=== PATIENT | male | born 1975 | race Caucasian/White ===

== ENCOUNTER 2022-03-12 09:26 | Emergency (ER) | payer SELFPAY ==
[~2022-03-12] VITALS: Ht 162 cm; Wt 77.0 kg
[2022-03-12] MEDS ORDERED: KETOROLAC 60 MG/2 ML VIAL IM ONE (10:30)
--- NOTE | 2022-03-12 11:40 | ED Lower Extremity ---
General Chief Complaint: Lower Extremity Stated Complaint: R ANKLE PAIN Nursing Triage Note: PT TO RM 8 WITH DAUGHTER WITH C/O R ANKLE AND FOOT PAIN SINCE FRIDAY MORNING. PT STATES HE PLAYED SOCCER ON FRIDAY AND THOUGHT HE POSSIBLY INJURED IT OR A GOUT FLARE. PT SEEN AT [facility] YESTERDAY Source: patient Exam Limitations: no limitations History of Present Illness Date Seen by Provider: Mar 12, 2022 Time Seen by Provider: 09:45 Initial Comments I attest that I saw this patient alongside the medical student and agree with his documented history, physical exam and review of systems except as otherwise noted.Patient to the ER by private conveyance chief complaint that over the weekend he playing football and he does not normally exercise or play football. He is having swelling and pain in his right ankle so he put some ice and compression and elevation on it and this caused a flare of gout in his right great toe. He went to [facility] yesterday and they did not give him any steroids just told him to take Tylenol. He took Tylenol and it did not help him. He did not receive any steroids or injections. He has no kidney history. He is not on allopurinol. Patient experiences about 1 flare every 3 months. He has made dietary changes. Allergies and Home Medications Allergies Coded Allergies: No Known Drug Allergies (Unverified , 03/12/22) Patient Home Medication List Home Medication List Reviewed: Yes Review of Systems Constitutional: No chills, No fever, No malaise EENTM: No hearing loss, No ear pain Respiratory: No cough, No short of breath Cardiovascular: No chest pain, No palpitations Gastrointestinal: No abdominal pain, No nausea, No vomiting All Other Systems Reviewed Negative Unless Noted: Yes Past Infdtml-Oizmeq-Aahdru Hx Patient Social History Tobacco Use?: No Use of E-Cig and/or Vaping dev: No Substance use?: No Alcohol Use?: No Pt feels they are or have been: No Immunizations Up To Date First/Initial COVID19 Vaccinat: UNKNOWN DATE Second COVID19 Vaccination Flo: MARCH 2022 Past Medical History Surgery/Hospitalization HX: GOUT, HTN HERNIA, LEODAN Physical Exam Vital Signs Vital Signs - First Documented 03/12/22 09:47 Temp 36.6 Pulse 89 Resp 16 B/P (MAP) 175/101 (125) Capillary Refill : Height, Weight, BMI Height: '" Weight: lbs. oz. kg; 29.00 BMI Method: General Appearance: WD/WN, mild distress HEENT: PERRL/EOMI, pharynx normal Neck: full range of motion, supple, normal inspection Cardiovascular: normal peripheral pulses, regular rate, rhythm Respiratory: no respiratory distress, no accessory muscle use Ankles: bilateral ankle other (Right ankle bilateral malleoli posteriorly are nontender to palpation. There is some edema and swelling around the ankle as well as the great toe that is warm red and very tender to palpation. Left ankle and foot are unremarkable.) Neurologic/Tendon: normal sensation, normal motor functions, normal tendon functions, responds to pain, no evidence tendon injury Neurologic/Psychiatric: no motor/sensory deficits, alert, normal mood/affect, oriented x 3 Progress/Results/Core Measures Results/Orders My Orders Orders - ROB ERIC Ketorolac Injection (Toradol Injection) (03/12/22 10:30) Medications Given in ED Current Medications Medications Dose Ordered Sig/Edward Route Start Time Stop Time Status Last Admin Dose Admin Ketorolac Tromethamine 60 mg ONCE ONCE IM 03/12/22 10:30 03/12/22 10:31 DC 03/12/22 10:25 60 MG Vital Signs/I&O 03/12/22 09:47 Temp 36.6 Pulse 89 Resp 16 B/P (MAP) 175/101 (125) Blood Pressure Mean: 125 Progress Progress Note : Time: 11:35 Progress Note Toradol. We did review the x-ray that was clouded and faxed over from [facility] that demonstrated no fracture detected. Lateral ankle soft tissue swelling. We will give him a prescription for allopurinol to start after this episode is over. We encouraged heat for the gout, wrapped his ankle with Sushil wrap and will put him on indomethacin for 5 days as well as continue Tylenol and put him on Medrol Dosepak. Patient is okay with this plan. Departure Impression Primary Impression: Gout flare Qualified Codes: M10.9 - Gout, unspecified Additional Impression: Right ankle sprain Qualified Codes: S93.401A - Sprain of unspecified ligament of right ankle, initial encounter Disposition: 01 HOME, SELF-CARE Condition: Stable Departure-Patient Inst. Decision time for Depature: 11:37 Referrals: NO,LOCAL PHYSICIAN (PCP/Family) Primary Care Physician Patient Instructions: Ankle Sprain ED, Low Purine Diet, Gout ED Add. Discharge Instructions: Keep the ankle loosely wrapped with elastic bandage such as an Sushil wrap until the swelling and pain goes away. You may use applications of heat judiciously for pain. Tylenol 1000 mg every 8 hours needed for pain. Do not use ibuprofen, naproxen or Aleve with indomethacin as they are the same class of drug. Indomethacin 1 tablet 3 times a day as necessary for pain for up to 5 days. Drink lots of fluids to stay well-hydrated. Medrol Dosepak take as directed. After all of your swelling and pain has gone away then you may initiate allopurinol 100 mg daily and follow-up with your primary care doctor to continue this prescription to reduce the amount of flares you experience. All discharge instructions reviewed with patient and/or family. Voiced understanding. Scripts Methylprednisolone (Methylprednisolone Dose Pack) 4 Mg Tab.ds.pk 4 MG PO UD for 6 Days, #21 PKG 0 Refills PER DOSE PACK INSTRUCTIONS Prov: ROB ERIC 03/12/22 Indomethacin (Indomethacin) 50 Mg Capsule 50 MG PO Q8H PRN for PAIN-BREAKTHROUGH, #15 CAP 0 Refills Prov: ROB ERIC 03/12/22 Allopurinol (Allopurinol) 100 Mg Tablet 100 MG PO DAILY for 30 Days, #30 TAB 0 Refills Start after gout flare concludes. Prov: ROB ERIC 03/12/22 Work/School Note: Work Release Form Date Seen in the Emergency Department: Mar 12, 2022 Return to Work: Mar 13, 2022 Restrictions: Need Release from Doctor Other Restrictions Listed Below: Minimize use of right ankle until 03/19/2022. ROB ERIC Mar 12, 2022 11:40
[2022-03-12] MEDS ORDERED: ALLO100T PO (11:42)
[2022-03-12] MEDS ORDERED: METH4TAB10 PO (11:42)
[2022-03-12] MEDS ORDERED: INDO50CA82 PO (11:42)
[2022-03-12 12:00] VITALS: BP 174/98
== END 2022-03-12 12:01 | disposition home or self-care (01) ==
LOC: ER 09:28
DX: S93.401A Sprain of unspecified ligament of right ankle, initial encounter (principal); M10.9 Gout, unspecified; X58.XXXA Exposure to other specified factors, initial encounter
CPT/HCPCS: 99284

== ENCOUNTER 2023-06-09 16:24 | Emergency (ER) | payer SELFPAY ==
[~2023-06-09] VITALS: Ht 165 cm; Wt 80.0 kg
[~2023-06-09 16:24] MED LIST: ALLO100T PO; INDO50CA82 PO; METH4TAB10 PO
[2023-06-09] MEDS ORDERED: INDO50CA82 PO (17:23)
[2023-06-09] MEDS ORDERED: NF-METHYLP PO (17:23)
--- NOTE | 2023-06-09 17:24 | ED Lower Extremity ---
General Chief Complaint: Lower Extremity Stated Complaint: LEFT KNEE PAIN Nursing Triage Note: PT STATES LT KNEE PAIN, THIS HAS HAPPEDED IN THE PAST, WAS WALKING FINE YESTERDAY, WAS ON HIS KNEES PRAYING YESTERDAY AND WOKE WITH LT KNEE PAIN. DENIES INJURY Source: patient Exam Limitations: no limitations History of Present Illness Date Seen by Provider: Jun 09, 2023 Time Seen by Provider: 17:20 Initial Comments Patient is a 47-year-old male who presents ED with left knee pain. Pain started yesterday. Patient states he was working over the weekend. Patient works in construction. Sharp pain to the left anterior knee. Pain is worse with standing or walking or bending. States he spent 45 minutes prior and last night on his knees which made it worse. Was having difficulty getting up and walking this morning to go to work. History of similar type symptoms in the past was seen here. History of gout. Did eat some meat last night. Denies any swelling redness or bruising of the knee or left leg. Denies taking thing for pain. Denies of any distal numbness and tingling, nausea, vomiting, diarrhea. Allergies and Home Medications Allergies Coded Allergies: No Known Drug Allergies (Unverified , 03/12/22) Patient Home Medication List Home Medication List Reviewed: Yes Allopurinol (Allopurinol) 100 Mg Tablet, 100 MG PO DAILY Prescribed by: ROB ERIC on 03/12/22 114 Indomethacin (Indomethacin) 50 Mg Capsule, 50 MG PO Q8H PRN for PAIN- BREAKTHROUGH Prescribed by: ROB ERIC on 03/12/22 114 Indomethacin (Indomethacin) 50 Mg Capsule, 50 MG PO TID Prescribed by: JOANNA FENG on 06/09/23 172 Methylprednisolone (Methylprednisolone Dose Pack) 4 Mg Tab.ds.pk, 4 MG PO UD Prescribed by: ROB ERIC on 03/12/22 114 Methylprednisolone (Medrol Dose pack) 4 Mg Tab, 4 MG PO UD Prescribed by: JOANNA FENG on 06/09/23 172 Review of Systems Constitutional: No chills, No diaphoresis EENTM: No ear pain, No blurred vision, No double vision Respiratory: No cough, No dyspnea on exertion Cardiovascular: No chest pain Gastrointestinal: No abdominal pain, No diarrhea, No nausea, No vomiting Genitourinary: No decreased output, No discharge Musculoskeletal: No back pain; joint pain Skin: No change in color, No change in hair/nails All Other Systems Reviewed Negative Unless Noted: Yes Past Lesooru-Cjcwzt-Yzbyjd Hx Patient Social History Tobacco Use?: No Substance use?: No Alcohol Use?: No Immunizations Up To Date First/Initial COVID19 Vaccinat: UNKNOWN DATE Second COVID19 Vaccination Flo: MARCH 2022 Third COVID19 Vaccination Date: UNKNOWN DATE Past Medical History Surgery/Hospitalization HX: GOUT, HTN, HERNIA, LEODAN Physical Exam Vital Signs Vital Signs - First Documented 06/09/23 16:56 Temp 37.1 Pulse 77 Resp 20 B/P (MAP) 177/110 (132) Pulse Ox 99 O2 Delivery Room Air Capillary Refill : Less Than 3 Seconds Height, Weight, BMI Height: '" Weight: lbs. oz. kg; 29.00 BMI Method: General Appearance: WD/WN, no apparent distress HEENT: PERRL/EOMI, normal ENT inspection, TMs normal, pharynx normal Neck: non-tender, full range of motion, supple Cardiovascular: regular rate, rhythm, no edema, no gallop, no JVD Respiratory: chest non-tender, lungs clear, normal breath sounds, no respir atory distress Gastrointestinal: normal bowel sounds, non tender, soft Back: normal inspection, no CVA tenderness Knees: left knee other (Flexion to 90 degrees with full extension. No crepitus with patella tracking. Manipulation of the patella resulted in pain. No lateral or medial joint line tenderness. Negative anterior and posterior drawer test. Negative pain or laxity with valgus and varus stress. Negative Isa test.) Ankles: bilateral ankle non-tender, bilateral ankle normal inspection, bilateral ankle normal range of motion Feet: bilateral foot non-tender, bilateral foot normal inspection, bilateral foot no evidence of injury Neurologic/Psychiatric: visual and stock associate II-XII nml as tested, no motor/sensory deficits, alert, normal mood/affect, oriented x 3 Skin: normal color Progress/Results/Core Measures Results/Orders My Orders Orders - VISHNU CHAUDHARI Ketorolac Injection (Ketorolac Injection (06/09/23 17:30) Vital Signs/I&O 06/09/23 16:56 Temp 37.1 Pulse 77 Resp 20 B/P (MAP) 177/110 (132) Pulse Ox 99 O2 Delivery Room Air Blood Pressure Mean: 132 Departure Communication (PCP) History of gout. Similar type pain 1 year ago. Excessive walking yesterday and started having sharp pain to the left knee., Works in construction. States he was sitting on his knees praying for 45 minutes last night which made the pain worse. Difficulty ambulating today. No specific injury. Not concern for fracture. Denies of any lucency or the left knee wanting to give out. he is able to bear weight. No erythema, warmth. Exam otherwise benign besides pain with manipulation of the patella suggesting inflammation underneath the patella. No strong evidence of joint swelling redness or warmth. History of gout and states this feels gout like. Patient received Toradol. Will discharge with indomethacin and methylprednisolone. Suspect this is more overuse resulting in patellofemoral syndrome. orthopedic outpatient follow-up in 7 to 10 days. Do not think imaging is necessary at this time. Provided work note per his request. Recommend range of motion exercises, rest and ice. If increased pain or developing swelling redness to return back to ED. Impression Primary Impression: Left knee pain Disposition: 01 HOME, SELF-CARE Condition: Stable Departure-Patient Inst. Decision time for Depature: 17:22 Referrals: [facility] [place] ISABEL,LOCAL PHYSICIAN (PCP) Primary Care Physician DOUG JESSICA MD Patient Instructions: Knee pain Scripts Methylprednisolone (Medrol Dose pack) 4 Mg Tab 4 MG PO UD for 6 Days, #21 TAB as directed per dose pack Prov: VISHNU CHAUDHARI 06/09/23 Indomethacin (Indomethacin) 50 Mg Capsule 50 MG PO TID for 5 Days, #15 CAP Prov: VISHNU CHAUDHARI 06/09/23 Work/School Note: Work Release Form Date Seen in the Emergency Department: Jun 09, 2023 Return to Work: Jun 14, 2023 VISHNU CHAUDHARI Jun 09, 2023 17:24
[2023-06-09] MEDS ORDERED: KETOROLAC INJ 30 MG/ML VIAL IM ONE (17:30)
[2023-06-09 17:58] VITALS: BP 177/110
== END 2023-06-09 17:58 | disposition home or self-care (01) ==
LOC: EDUNIT# 16:24 → ER 16:25
DX: M25.562 Pain in left knee (principal)